=== PATIENT | female | born 2000 | race Caucasian/White ===

== ENCOUNTER 2021-12-20 21:43 | Emergency (ER) | payer BC, SELFPAY ==
--- NOTE | ~2021-12-20 | US_ITS ---
EXAMINATION: US OBSTETRICAL ULTRASOUND CLINICAL INFORMATION: 7 weeks . Cramping and bleeding. COMPARISON: None. LMP: 11/02/2021. Gestational age by maternal dates is 7 weeks 0 day.. Estimated date of delivery by maternal dates is 08/09/2022. TECHNIQUE: Transabdominal and endovaginal sonographic evaluation of the pelvis. Doppler evaluation with spectral analysis performed. FINDINGS: The uterus measures 7.7 x 3.7 x 6 cm. Trace fluid in the cervix. There is a single intrauterine gestational sac without yolk sac or pole. There are 2 small fluid collections adjacent to the gestational sac measuring 0.7 cm and 0.4 cm. Mean sac diameter: 1.10 cm (5 weeks 6 days +/- 4 days). BG (estimated date of delivery): 08/17/2022 +/- 4 days. MATERNAL ADNEXA: The right maternal ovary measures 3.2 x 1.8 x 2.4 cm. Normal arterial and venous spectral waveforms. The left maternal ovary measures 4 x 1.4 x 1.6 cm. Normal arterial and venous spectral waveforms. There is no significant maternal adnexal mass. No maternal pelvic ascites. US/US OB <= 14 weeks fetus IMPRESSION: 1. Single intrauterine gestational sac with ultrasound gestational age of 5 weeks 6 days +/- 4 days. No pole or yolk sac seen at this time, possibly secondary to the yearly stage of . 2. There 2 small foci of fluid adjacent to the gestational sac which could represent small subchorionic hemorrhages. Continued follow-up recommended.
--- NOTE | ~2021-12-20 | US_ITS ---
EXAMINATION: US OBSTETRICAL ULTRASOUND CLINICAL INFORMATION: 7 weeks . Cramping and bleeding. COMPARISON: None. LMP: 11/02/2021. Gestational age by maternal dates is 7 weeks 0 day.. Estimated date of delivery by maternal dates is 08/09/2022. TECHNIQUE: Transabdominal and endovaginal sonographic evaluation of the pelvis. Doppler evaluation with spectral analysis performed. FINDINGS: The uterus measures 7.7 x 3.7 x 6 cm. Trace fluid in the cervix. There is a single intrauterine gestational sac without yolk sac or pole. There are 2 small fluid collections adjacent to the gestational sac measuring 0.7 cm and 0.4 cm. Mean sac diameter: 1.10 cm (5 weeks 6 days +/- 4 days). BG (estimated date of delivery): 08/17/2022 +/- 4 days. MATERNAL ADNEXA: The right maternal ovary measures 3.2 x 1.8 x 2.4 cm. Normal arterial and venous spectral waveforms. The left maternal ovary measures 4 x 1.4 x 1.6 cm. Normal arterial and venous spectral waveforms. There is no significant maternal adnexal mass. No maternal pelvic ascites. US/US OB transvaginal IMPRESSION: 1. Single intrauterine gestational sac with ultrasound gestational age of 5 weeks 6 days +/- 4 days. No pole or yolk sac seen at this time, possibly secondary to the yearly stage of . 2. There 2 small foci of fluid adjacent to the gestational sac which could represent small subchorionic hemorrhages. Continued follow-up recommended.
[2021-12-20 22:39] LABS: MANUAL DIFF FLAG NO
[2021-12-20 22:40] LABS: Basophils Percent Auto 0.2 % (0-2); Eosinophils Absolute Auto 0.1 X10*3/uL (0.0-0.4); Eosinophils Percent Auto 0.7 % (0-4); Hematocrit 38.7 % (37.0-47.0); Hemoglobin 12.5 g/dl (12.0-16.0); Imm Gran Abs Auto 0.02 X10*3/uL (0.00-0.03); Imm Gran Pct Auto 0.2 % (0.0-0.4); Lymphocytes Absolute Auto 2.7 X10*3/uL (1.2-4.9); Lymphocytes Percent Auto 32.1 % (20-40); Mean Corpuscular HGB Conc 32.3 g/dl (31.0-35.0); Mean Corpuscular Hemoglobin 26.6 pg (27.0-33.0); Mean Corpuscular Volume 82.3 fL (80.0-98.0); Mean Platelet Volume 10.2 fL (9.4-12.3); Monocytes Absolute Auto 0.7 X10*3/uL (0.1-1.2); Monocytes Percent Auto 8.6 % (2-11); Neutrophils Absolute Auto 4.8 x10*3/uL (2.0-8.3); Neutrophils Percent Auto 58.2 % (45-73); Platelet Count 270 X10*3/uL (160-400); Red Cell Distribution Width 13.2 % (11.0-16.0); White Blood Count 8.3 X10*3/uL (4.8-10.8)
[2021-12-20 22:46] VITALS: BP 124/72; PULSE 87; RESP 16; TEMP 36.6; O2SAT 99; BMI 28.3
[2021-12-20 22:55] LABS: Alanine Aminotransferase 21 U/L (0-31); Albumin Level 4.6 g/dL (3.5-5.0); Alkaline Phosphatase 71 U/L (39-117); Anion Gap 12 (12-20); Aspartate Amino Transferase 19 U/L (5-31); Bilirubin Direct 0.2 mg/dL (0.0-0.5); Bilirubin Total 0.3 mg/dL (0.0-1.0); Blood Urea Nitrogen 9 mg/dL (9-16); Calcium 9.6 mg/dL (8.4-10.2); Carbon Dioxide 24 mmol/L (22-29); Chloride 106 mmol/L (96-108); Creatinine Clr Calc Pharmacy 111.4; Estimated Glomerular Filt Rate > 60; Glucose Random 106 mg/dL (60-115); Potassium 4.3 mmol/L (3.3-5.1); Sodium 138 mmol/L (135-145); Total Protein 7.3 g/dL (6.5-8.0)
[2021-12-20 23:01] LABS: HCG Quantitative 10503 mIU/mL
[2021-12-20 23:21] LABS: Appearance Urine HAZY; Color Urine YELLOW; Glucose Urine UA NEG (NEG); Leukocyte Esterase Urine NEG (NEG); Nitrite Urine NEG (NEG); UACC Culture Trigger NO; Urine Blood 2+ (NEG); Urine Ketones NEG (NEG); Urine Protein NEG (NEG-TRACE)
[2021-12-20 23:45] LABS: Bacteria Urine TRACE /LPF; Squamous Epithelial Cell Urine 1+ /LPF; WBC Urine 0-2 /HPF (0-4)
[2021-12-20 23:46] LABS: Mucus Urine 1+ /LPF
--- NOTE | 2021-12-21 00:33 | ED.PREGNANCY ---
HPI - General Chief complaint: Vaginal Bleeding Stated complaint: 7wks preg, cramping vaginal bleeding Time Seen by Provider: 12/20/21 21:48 Source: patient Mode of arrival: ambulatory Limitations: no limitations History of Present Illness HPI Narrative: 21-year-old female presents with worsening cramping and brown spotting for for several days. She is approximately 7 weeks , last menstrual cycle was 11/02. She has not report any fevers or chills, and denies adnexal tenderness. Complaint: vaginal bleeding Onset (ago): day(s) (5) Pain Consistency: intermittent Location: pelvis Severity: moderate Severity scale (1-10): 5 Quality: Cramping Radiation: pelvis Relieving factors: none Exacerbating factors: none Associated symptoms: vaginal bleeding Vaginal discharge: none Vaginal bleeding: light Date of Last Menstrual Period: 11/02/21 Patient : Yes Related Data : 1 Para: 0 Total number of abortions (spontaneous and elective): 0 Allergies Allergy/AdvReac Type Severity Reaction Status Date / Time Penicillins Allergy Unknown Verified 12/20/21 22:50 Review of Systems Review of Systems: Constitutional: No Fever, No Chills ENT/Mouth: No Ear Pain, No Hoarseness, No sore throat Eyes: No Eye Pain, No Swelling, No Redness, No Foreign Body Cardiovascular: No Chest Pain, No SOB Respiratory: No Cough, No Dyspnea Gastrointestinal: No Nausea, No Vomiting, No Diarrhea, No abdominal Pain Genitourinary: Positive , positive vaginal bleeding, positive pelvic pain, No Dysuria, No Hematuria Musculoskeletal: No joint pain, No Myalgias, No Joint Swelling Skin: No Skin lacerations, No rash Neuro: No Weakness, No Numbness, No Paresthesias, No Loss of Consciousness, No Dizziness, No Headache Psych: No Anxiety/Panic, No Depression Heme/Lymph: no easy bruising, no Lymphadenopathy Endocrine: No Polyuria, No Polydipsia Yes all other systems are reviewed and are negative PMFSH Past Medical History Attestation statement: The following information was validated with the patient. Source: old records reviewed : 1 Para: 0 Total number of abortions (spontaneous and elective): 0 Date of Last Menstrual Period: 11/02/21 Social History Social History Advance Directives: No Physical Exam Vital Signs: Vital Signs: Last Vital Signs Temp 97.9 F 12/21/21 00:40 Pulse 108 H 12/21/21 00:40 Resp 20 12/21/21 00:40 BP 125/83 12/21/21 00:40 Pulse Ox 100 12/21/21 00:40 O2 Del Method 12/21/21 00:40 BMI result Body Mass Index 28.3 Appearance: Alert. Oriented X3. No acute distress. Eyes: Pupils equal, round and reactive to light. ENT: Pharynx normal. Neck: Normal inspection. Neck supple. CVS: Normal heart rate and rhythm. Pulses normal. Respiratory: No respiratory distress. Breath sounds normal. Abdomen: Soft and nontender. No adnexal tenderness on palpation. Skin: Skin warm and dry. Normal skin color. Normal skin turgor. Extremities: No lower extremity edema. Gait well-balanced well coordinated Neuro: No motor deficit. No sensory deficit. Cranial nerves 2-12 in Course Course Course Narrative: 21-year-old female presents with vaginal bleeding and pelvic cramping for the past few days. Is proximally 7 weeks 1, para 0. Patient is afebrile, appears nontoxic, will order pelvic ultrasound to rule out ectopic. 02:40 ultrasound indicates single intrauterine gestational sac with gestational age of 5 weeks 6 days +/-4, no pole or yolk sac seen at this time. Could possibly be due secondarily to early stage of . There are 2 small foci of fluid adjacent to the gestational sacs which could represent subchorionic hemorrhages. I did discuss this case with Dr. Cuevas, plan of care is for patient to follow-up with him in the office this week. Patient does understand signs and symptoms indicating need for emergent intervention. Understands instructions for threatened . Patient verbalized understanding of and agrees to plan of care discharge home. Consultations Consultation #1: Faith Time: 02:00 MDM - OB/Uterine Contractions MDM Narrative Medical decision making narrative: Threatened , ectopic Medical Records Attestation: I reviewed the patient's medical records. Lab Data Attestation: I reviewed the patient's lab results. Result diagrams: 12/20/21 22:31 12/20/21 22:31 Labs: Lab Results 07/05/22 07/05/22 07/05/22 Range/Units 22:31 22:31 22:31 WBC 8.3 (4.8-10.8) X10*3/uL RBC 4.70 (4.20-5.50) X10*6/uL Hgb 12.5 (12.0-16.0) g/dl Hct 38.7 (37.0-47.0) % MCV 82.3 (80.0-98.0) fL MCH 26.6 L (27.0-33.0) pg MCHC 32.3 (31.0-35.0) g/dl RDW 13.2 (11.0-16.0) % Plt Count 270 (160-400) X10*3/uL MPV 10.2 (9.4-12.3) fL Immature Gran % (Auto) 0.2 (0.0-0.4) % Neut % (Auto) 58.2 (45-73) % Lymph % (Auto) 32.1 (20-40) % [place] % (Auto) 8.6 (2-11) % Eos % (Auto) 0.7 (0-4) % Baso % (Auto) 0.2 (0-2) % Lymph # (Auto) 2.7 (1.2-4.9) X10*3/uL [place] # (Auto) 0.7 (0.1-1.2) X10*3/uL Eos # (Auto) 0.1 (0.0-0.4) X10*3/uL Baso # (Auto) 0.0 (0.0-0.2) X10*3/uL Abs Immat Gran (auto) 0.02 (0.00-0.03) X10*3/uL Absolute Neuts (auto) 4.8 (2.0-8.3) x10*3/uL Absolute Nucleated RBC 0.000 (0.0-0.012) X10*3/uL Nucleated RBC % (auto) 0.0 (0.0-0.2) /100WBC Sodium 138 (135-145) mmol/L Potassium 4.3 (3.3-5.1) mmol/L Chloride 106 (96-108) mmol/L Carbon Dioxide 24 (22-29) mmol/L Anion Gap 12 (12-20) BUN 9 (9-16) mg/dL Creatinine 0.75 (0.5-1.4) mg/dL Estim Creat Clear Calc 111.4 Estimated GFR > 60 Random Glucose 106 (60-115) mg/dL Calcium 9.6 (8.4-10.2) mg/dL Total Bilirubin 0.3 (0.0-1.0) mg/dL Direct Bilirubin 0.2 (0.0-0.5) mg/dL AST 19 (5-31) U/L ALT 21 (0-31) U/L Alkaline Phosphatase 71 (39-117) U/L Total Protein 7.3 (6.5-8.0) g/dL Albumin 4.6 (3.5-5.0) g/dL Beta HCG, Quant 37778 mIU/mL Urine Color Urine Appearance Urine pH (5.0-8.0) Ur Specific [place] (1.005-1.025) Urine Protein (NEG-TRACE) MG/DL Urine Glucose (UA) (NEG) MG/DL Urine Ketones (NEG) MG/DL Urine Blood (NEG) Urine Nitrite (NEG) Ur Leukocyte Esterase (NEG) Urine RBC (0) /HPF Urine WBC (0-4) /HPF Ur Squamous Epith Cells /LPF Urine Bacteria /LPF Urine Mucus /LPF Blood Type O Positive 12/20/21 Range/Units 23:11 WBC (4.8-10.8) X10*3/uL RBC (4.20-5.50) X10*6/uL Hgb (12.0-16.0) g/dl Hct (37.0-47.0) % MCV (80.0-98.0) fL MCH (27.0-33.0) pg MCHC (31.0-35.0) g/dl RDW (11.0-16.0) % Plt Count (160-400) X10*3/uL MPV (9.4-12.3) fL Immature Gran % (Auto) (0.0-0.4) % Neut % (Auto) (45-73) % Lymph % (Auto) (20-40) % [place] % (Auto) (2-11) % Eos % (Auto) (0-4) % Baso % (Auto) (0-2) % Lymph # (Auto) (1.2-4.9) X10*3/uL [place] # (Auto) (0.1-1.2) X10*3/uL Eos # (Auto) (0.0-0.4) X10*3/uL Baso # (Auto) (0.0-0.2) X10*3/uL Abs Immat Gran (auto) (0.00-0.03) X10*3/uL Absolute Neuts (auto) (2.0-8.3) x10*3/uL Absolute Nucleated RBC (0.0-0.012) X10*3/uL Nucleated RBC % (auto) (0.0-0.2) /100WBC Sodium (135-145) mmol/L Potassium (3.3-5.1) mmol/L Chloride (96-108) mmol/L Carbon Dioxide (22-29) mmol/L Anion Gap (12-20) BUN (9-16) mg/dL Creatinine (0.5-1.4) mg/dL Estim Creat Clear Calc Estimated GFR Random Glucose (60-115) mg/dL Calcium (8.4-10.2) mg/dL Total Bilirubin (0.0-1.0) mg/dL Direct Bilirubin (0.0-0.5) mg/dL AST (5-31) U/L ALT (0-31) U/L Alkaline Phosphatase (39-117) U/L Total Protein (6.5-8.0) g/dL Albumin (3.5-5.0) g/dL Beta HCG, Quant mIU/mL Urine Color YELLOW Urine Appearance HAZY Urine pH 6.0 (5.0-8.0) Ur Specific [place] 1.020 (1.005-1.025) Urine Protein NEG (NEG-TRACE) MG/DL Urine Glucose (UA) NEG (NEG) MG/DL Urine Ketones NEG (NEG) MG/DL Urine Blood 2+ H (NEG) Urine Nitrite NEG (NEG) Ur Leukocyte Esterase NEG (NEG) Urine RBC 1-4 (0) /HPF Urine WBC 0-2 (0-4) /HPF Ur Squamous Epith Cells 1+ /LPF Urine Bacteria TRACE /LPF Urine Mucus 1+ /LPF Blood Type Imaging Data ultrasound: Attestation: I personally reviewed and interpreted this imaging study as follows: Radiologist's impression: EXAMINATION:? US OBSTETRICAL ULTRASOUND CLINICAL INFORMATION:? 7 weeks . Cramping and bleeding. COMPARISON:? None.? LMP: 11/02/2021. Gestational age by maternal dates is 7 weeks 0 day.. Estimated date of delivery by maternal dates is 08/09/2022. TECHNIQUE: Transabdominal and endovaginal sonographic evaluation of the pelvis. Doppler evaluation with spectral analysis performed. ? FINDINGS: The uterus measures 7.7 x 3.7 x 6 cm. Trace fluid in the cervix. There is a single intrauterine gestational sac without yolk sac or pole. There are 2 small fluid collections adjacent to the gestational sac measuring 0.7 cm and 0.4 cm. Mean sac diameter: ? 1.10 cm (5 weeks 6 days +/- 4 days). BG (estimated date of delivery):? 08/17/2022 +/- 4 days. ? MATERNAL ADNEXA: ? ? The right maternal ovary measures 3.2 x 1.8 x 2.4 cm.? Normal arterial and venous spectral waveforms. The left maternal ovary measures 4 x 1.4 x 1.6 cm.? Normal arterial and venous spectral waveforms. There is no significant maternal adnexal mass.? No maternal pelvic ascites. US/US OB <= 14 weeks fetus IMPRESSION: 1. Single intrauterine gestational sac with ultrasound gestational age of? 5 weeks 6 days +/- 4 days. No pole or yolk sac seen at this time, possibly secondary to the yearly stage of . 2. There 2 small foci of fluid adjacent to the gestational sac which could represent small subchorionic hemorrhages. Continued follow-up recommended. Discharge Plan Discharge Clinical Impression: Threatened , Missed Patient Disposition: Home, Self-Care Instructions: Threatened Miscarriage (ED) Additional Instructions: You were evaluated for bleeding and cramping while . Ultrasound indicates 1. Single intrauterine gestational sac with ultrasound gestational age of? 5 weeks 6 days +/- 4 days. No pole or yolk sac seen at this time, possibly secondary to the yearly stage of . 2. There 2 small foci of fluid adjacent to the gestational sac which could represent small subchorionic hemorrhages. Continued follow-up recommended. Please follow-up with Dr. Cuevas this week. He is expecting your call. Thank you for choosing this emergency department for evaluation. Please follow-up with primary care physician as needed. Return to the emergency department for any new, concerning, or worsening symptoms. Referrals: Willard Cuevas MD [Physician] - 2 days (Threatened ) Stand Alone Forms: Work/School Release
[2021-12-21 00:40] VITALS: BP 125/83; PULSE 108; RESP 20; TEMP 36.6; O2SAT 100
--- NOTE | 2021-12-21 02:32 | P.CONOB_ITS ---
SENIOR PYTHON DEVELOPER - CN: HPI Data of Consult Consult date: 12/21/21 Primary Care Provider: Unknown Physician Consult Narrative Narrative: I was consulted on Kaylie Moe who is a 21 year old female at around 6 weeks of gestation presented emergency room with pelvic cramping and mild spotting, no other additional symptoms. The following workup was done emergency room: HCG 10,503, Rh pending, CBC within normal. Ultrasound showed the followin. Single intrauterine gestational sac with ultrasound gestational age of? 5 weeks 6 days +/- 4 days. No pole or yolk sac seen at this time, possibly secondary to the yearly stage of . 2. There 2 small foci of fluid adjacent to the gestational sac which could represent small subchorionic hemorrhages. Continued follow-up recommended. cc:: CC: OB [facility] Social History Social History Advance Directives: No Meds Allergies Allergy/AdvReac Type Severity Reaction Status Date / Time Penicillins Allergy Unknown Verified 12/20/21 22:50 SENIOR PYTHON DEVELOPER Physical Exam Vitals Vital signs: Temp Pulse Resp BP Pulse Ox O2 Del Method 97.9 F 108 H 20 125/83 100 12/21/21 00:40 12/21/21 00:40 12/21/21 00:40 12/21/21 00:40 12/21/21 00:40 12/21/21 00:40 BMI result Body Mass Index 28.3 Additional Comments: Reported by Skylar Perez NP in the emergency room to be benign abdominal exam with minimal vaginal bleeding SENIOR PYTHON DEVELOPER - Results Labs CBC & Chem 7: 12/20/21 22:31 12/20/21 22:31 Labs: Short CBC 12/20/21 Range/Units 22:31 WBC 8.3 (4.8-10.8) X10*3/uL Hgb 12.5 (12.0-16.0) g/dl Hct 38.7 (37.0-47.0) % Plt Count 270 (160-400) X10*3/uL BMP 12/20/21 22:31 Sodium 138 Potassium 4.3 Chloride 106 Carbon Dioxide 24 BUN 9 Creatinine 0.75 Calcium 9.6 Liver Function 12/20/21 Range/Units 22:31 Total Bilirubin 0.3 (0.0-1.0) mg/dL Direct Bilirubin 0.2 (0.0-0.5) mg/dL AST 19 (5-31) U/L ALT 21 (0-31) U/L Alkaline Phosphatase 71 (39-117) U/L Albumin 4.6 (3.5-5.0) g/dL Urine 12/20/21 Range/Units 23:11 Urine Color YELLOW Urine Appearance HAZY Urine pH 6.0 (5.0-8.0) Ur Specific [place] 1.020 (1.005-1.025) Urine Protein NEG (NEG-TRACE) MG/DL Urine Glucose (UA) NEG (NEG) MG/DL Imaging US - abdomen: Radiologist's impression: ITS Impressions Ultrasound 12/21/21 01:45 IMPRESSION: 1. Single intrauterine gestational sac with ultrasound gestational age of 5 weeks 6 days +/- 4 days. No pole or yolk sac seen at this time, possibly secondary to the yearly stage of . 2. There 2 small foci of fluid adjacent to the gestational sac which could represent small subchorionic hemorrhages. Continued follow-up recommended. Transvaginal US 12/21/21 01:45 IMPRESSION: 1. Single intrauterine gestational sac with ultrasound gestational age of 5 weeks 6 days +/- 4 days. No pole or yolk sac seen at this time, possibly secondary to the yearly stage of . 2. There 2 small foci of fluid adjacent to the gestational sac which could represent small subchorionic hemorrhages. Continued follow-up recommended. Assessment and Plan (1) Threatened : Status: Acute Plan I recommended the following to Skylar Perez NP in the emergency room: Check Rh if negative RhoGAM , SAB warnings to be given to the patient SAB warnings to be given to patient, she is to come back to the emergency room in case of persistent or worsening of pelvic cramping and /or bleeding, follow- up in the office 1-2 days. vitamin 1 tablet p.o. q.d. I spent a total of 25 minutes reviewing the chart, communicating with the ER provider and documenting in the medical record
[2021-12-21 02:55] VITALS: BP 115/71; PULSE 87; RESP 14; TEMP 36.9; O2SAT 98
== END 2021-12-21 03:25 | disposition home or self-care (01) ==
PROVIDERS: Emergency Medicine; Emergency Provider Nurse Practitioner Family
DX: O20.0 Threatened abortion (principal); Z3A.01 Less than 8 weeks gestation of pregnancy
CPT/HCPCS: 36415; 76801; 76817; 80048; 80076; 81001; 84702; 85025; 86900; 86901; 99284

== ENCOUNTER 2021-12-22 11:54 | Outpatient (REF) | payer BC, SELFPAY ==
[2021-12-22 13:10] LABS: HCG Quantitative 13938 mIU/mL
[2021-12-22 19:22] LABS: CT PCR NOT DETECTED (Not Detect.); NG PCR NOT DETECTED (Not Detect.)
== END 2021-12-22 11:55 | disposition home or self-care (01) ==
LOC: HO.LAB 11:54
PROVIDERS: Visit Provider Obstetrics & Gynecology
DX: O20.0 Threatened abortion (principal)
CPT/HCPCS: 36415; 84702; 87491; 87591

== ENCOUNTER 2021-12-30 09:45 | Outpatient (REF) | payer BC, SELFPAY ==
--- NOTE | ~2021-12-30 | US_ITS ---
EXAMINATION: US OBSTETRICAL ULTRASOUND CLINICAL INFORMATION: Threatened COMPARISON: Previous pelvic ultrasound 12/21/2021. LMP: 11/02/2021. TECHNIQUE: Transabdominal and transvaginal pelvic ultrasound was performed. Transvaginal exam was performed for better visualization of the uterus and ovaries. FINDINGS: The uterus is anteverted and measures 7.4 x 3.5 x 5.3 cm in dimension. Intrauterine gestational sac is no longer seen. The endometrium is thickened measuring 1 cm, heterogeneous and slightly hypervascular. Ultrasound appearance is suggestive of retained products of conception. The ovaries are normal. The right ovary measures 4 x 2.3 x 2.1 cm. The left ovary measures 3.2 x 1.7 x 2.1 cm. There is a small amount of fluid in the pelvis. US/US OB pelvic and transvaginal IMPRESSION: Intrauterine gestational sac no longer seen. Slightly thickened heterogeneous hypervascular endometrium suggestive of retained products of conception.
== END 2021-12-30 09:46 | disposition home or self-care (01) ==
LOC: HO.US 09:45
PROVIDERS: Visit Provider Obstetrics & Gynecology
DX: O20.0 Threatened abortion (principal)
CPT/HCPCS: 76801; 76817

== ENCOUNTER 2022-01-02 10:00 | Outpatient (REF) | payer BC, SELFPAY ==
[2022-01-02 11:53] LABS: HCG Quantitative 55 mIU/mL
== END 2022-01-02 10:01 | disposition home or self-care (01) ==
LOC: HO.LAB 10:00
PROVIDERS: Visit Provider Obstetrics & Gynecology
DX: R93.89 Abnormal findings on diagnostic imaging of other specified body structures (principal)
CPT/HCPCS: 36415; 84702

== ENCOUNTER 2022-01-12 09:34 | Outpatient (REF) | payer BC, SELFPAY ==
[2022-01-12 10:35] LABS: HCG Quantitative 7 mIU/mL
== END 2022-01-12 09:35 | disposition home or self-care (01) ==
LOC: HO.LAB 09:34
PROVIDERS: Visit Provider Obstetrics & Gynecology
DX: R93.89 Abnormal findings on diagnostic imaging of other specified body structures (principal)
CPT/HCPCS: 36415; 84702

== ENCOUNTER → 2024-10-20 11:30 | Outpatient (BNV) | payer BC, SELFPAY | PROVIDERS: Visit Provider Nurse Practitioner Family | DX: O99.013 Anemia complicating pregnancy, third trimester (principal); Z3A.28 28 weeks gestation of pregnancy | CPT/HCPCS: 99204 ==

== ENCOUNTER 2024-11-04 14:30 | Outpatient (RCR) | payer BC, SELFPAY ==
[2024-10-20 14:39] VITALS: BP 129/89; PULSE 102; RESP 16; TEMP 36.9; O2SAT 100
[2024-10-20] MEDS: Iron Sucrose Complex 200 MG in 0.9 % Sodium Chloride 100 ML 440 MG IV (14:41)
[2024-10-31 14:43] VITALS: BP 141/76; PULSE 113; RESP 16; TEMP 36.7; O2SAT 98
[2024-10-31] MEDS: Iron Sucrose Complex 200 MG in 0.9 % Sodium Chloride 100 ML 440 MG IV (15:04)
[2024-10-31 15:47] LABS: Alanine Aminotransferase 10 U/L (0-31); Albumin Level 3.3 g/dL (3.5-5.0); Anion Gap 13 (12-20); Aspartate Amino Transferase 21 U/L (5-31); Bilirubin Total 0.2 mg/dL (0.0-1.0); Blood Urea Nitrogen 9 mg/dL (9-16); Calcium 8.5 mg/dL (8.4-10.2); Carbon Dioxide 19 mmol/L (22-29); Chloride 109 mmol/L (96-108); Estimated Glomerular Filt Rate > 60; Glucose Random 94 mg/dL (60-115); Potassium 3.8 mmol/L (3.3-5.1); Sodium 137 mmol/L (135-145); Total Protein 5.9 g/dL (6.5-8.0)
[2024-10-31 15:50] LABS: Alkaline Phosphatase 169 U/L (39-117)
[2024-10-31 16:01] LABS: Ferritin 37 ng/mL (10-122)
[2024-11-04 14:37] VITALS: BP 146/90; PULSE 111; RESP 16; TEMP 36.6; O2SAT 99
[2024-11-04] MEDS: Iron Sucrose Complex 200 MG in 0.9 % Sodium Chloride 100 ML 440 MG IV (14:48)
[2024-11-04 14:55] LABS: Hematocrit 31.4 % (37.0-47.0); Hemoglobin 9.8 g/dl (12.0-16.0); Mean Corpuscular HGB Conc 31.2 g/dl (31.0-35.0); Mean Corpuscular Volume 70.4 fL (80.0-98.0); PLT CLUMP 1; Red Blood Count 4.46 X10*6/uL (4.20-5.50); Red Cell Distribution Width 21.1 % (11.0-16.0)
[2024-11-04 14:56] LABS: Platelet Count 242 X10*3/uL (160-400); White Blood Count 7.8 X10*3/uL (4.8-10.8)
[2024-11-04 15:27] LABS: Ferritin 98 ng/mL (10-122)
== END 2024-11-04 15:14 | disposition home or self-care (01) ==
LOC: HO.INF 14:30
PROVIDERS: Visit Provider Nurse Practitioner Family
DX: O99.019 Anemia complicating pregnancy, unspecified trimester (principal)
CPT/HCPCS: 36415; 80053; 82728; 85027; 96365; J1756